=== PATIENT | male | born 1965 | race Caucasian/White ===

== ENCOUNTER 2022-07-24 07:30 | Outpatient (CLI) | payer BC, SELFPAY ==
[2022-07-24 10:33] LABS: Albumin* 4.6 g/dL (3.3-5.0)
[2022-07-24 10:34] LABS: Chloride* 107 mmol/L (96-114); Potassium* 5.4 mmol/L (3.6-5.1); Sodium* 141 mmol/L (135-149)
[2022-07-24 10:36] LABS: Bilirubin Total* 1.2 mg/dL (0.1-1.5); Carbon Dioxide* 25 mmol/L (20-32); Cholesterol* 143 mg/dL (90-199); Creatinine* 0.9 mg/dL (0.5-1.5); Estimated Glomerular Filt Rate 101 ml/min
[2022-07-24 10:37] LABS: Alanine Aminotransferase* 67 U/L (4-50); Alkaline Phosphatase* 84 U/L (40-150); Aspartate Amino Transferase* 56 U/L (12-35); Blood Urea Nitrogen* 16 mg/dL (7-30); Calcium* 9.7 mg/dL (8.4-10.6); Glucose* 130 mg/dL (60-115); Total Protein* 7.4 g/dL (6.0-8.3); Triglycerides* 114 mg/dL (40-149)
[2022-07-24 10:38] LABS: HDL Cholesterol* 57 mg/dL (>=40); LDL Cholesterol Calculated 63 mg/dL (<100)
[2022-07-24 11:08] LABS: PSA Screen* 1.92 ng/mL (0.10-4.00)
[2022-07-25 19:17] LABS: Sex Hormone Binding Globulin 28 nmol/L (19-76); Testosterone, Adult Male 423 ng/dL (300-890); Testosterone, Free Calculation 85 pg/mL (47-244)
== END 2022-07-24 07:31 | disposition home or self-care (01) ==
PROVIDERS: PCP Family Medicine; Visit Provider Family Medicine
DX: Z00.00 Encounter for general adult medical examination without abnormal findings (principal); N40.0 Benign prostatic hyperplasia without lower urinary tract symptoms; Z13.6 Encounter for screening for cardiovascular disorders
CPT/HCPCS: 80053; 80061; 84153; 84270; 84402; 84403

== ENCOUNTER 2022-08-21 16:42 | Outpatient (CLI) | payer BC, SELFPAY | END 2022-08-21 16:43 | disposition home or self-care (01) | PROVIDERS: PCP Family Medicine; Visit Provider Family Medicine | DX: Z00.00 Encounter for general adult medical examination without abnormal findings (principal); R74.8 Abnormal levels of other serum enzymes; R73.9 Hyperglycemia, unspecified; I10 Essential (primary) hypertension; E78.00 Pure hypercholesterolemia, unspecified | CPT/HCPCS: 80076 ==

== ENCOUNTER 2024-06-16 07:40 | Outpatient (CLI) | payer BC, SELFPAY | END 2024-06-16 07:41 | disposition home or self-care (01) | LOC: NFLDREF 06-27 14:44 | PROVIDERS: PCP Family Medicine; Referring Provider Family Medicine; Visit Provider Family Medicine | DX: Z13.1 Encounter for screening for diabetes mellitus (principal); Z13.6 Encounter for screening for cardiovascular disorders; Z12.5 Encounter for screening for malignant neoplasm of prostate; Z13.0 Encounter for screening for diseases of the blood and blood-forming organs and certain disorders involving the immune mechanism | CPT/HCPCS: 80053; 80061; 84270; 84402; 84403; G0103 ==